=== PATIENT | female | born 1970 | race Caucasian/White ===

== ENCOUNTER 2018-11-16 08:37 | Emergency (ER) | payer OTHER ==
[~2018-11-16] VITALS: Ht 175.3 cm; Wt 85.9 kg
[2018-11-16 08:39] VITALS: BP 131/86; PULSE 74; RESP 17; Ht 175.3 cm; Wt 85.9 kg
[2018-11-16] MEDS ORDERED: NAPR-985 PO (10:17)
--- NOTE | 2018-11-16 10:26 | ERD ---
ER Documentation Chief Complaint Chief Complaint pelvic pain since 11/03 HPI 48-year-old female presenting with pelvic pain times 1 month. Patient states her pain is located in the right lower quadrant. LNMP October 04. Patient was seen at [facility] and told that she had a cyst on her ovary. Patient has had no changes in urination or bowel movement. Denies vomiting. No medical problems. Allergy to penicillin. Surgical history tonsillectomy and appendectomy. Social history denies ROS All systems reviewed and are negative except as per history of present illness. Medications Home Meds Active Scripts Naproxen* (Naprosyn*) 500 Mg Tablet, 500 MG PO BID PRN for PAIN AND/OR INFLAMMATION, #30 TAB Prov:BERNA STORM PA-C 11/16/18 Allergies Allergies: Coded Allergies: Penicillins (Verified Allergy, Unknown, 11/16/18) PMhx/Soc Hx Alcohol Use: No Hx Substance Use: No Hx Tobacco Use: No Smoking Status: Never smoker FmHx Family History: No diabetes, No coronary disease, No other Physical Exam Vitals Vital Signs Date Temp Pulse Resp B/P (MAP) Pulse Ox O2 O2 Flow FiO2 Time Delivery Rate 11/16/18 98.6 74 17 131/86 100 08:39 (101) Physical Exam GENERAL: The patient is well-appearing, well-nourished, in no acute distress CHEST: Clear to auscultation bilaterally. There are no rales, wheezes or rhonchi. HEART: Regular rate and rhythm. No murmurs, clicks, rubs or gallops. No S3 or S4. ABDOMEN: Normal active bowel sounds. No distention. Tender to palpation in the right lower quadrant with no rebound tenderness. No organomegaly. BACK: No midline or flank tenderness. Result Diagram: 11/16/1818 11/16/18917 Results 24 hrs Laboratory Tests Test 11/16/18 09:11 11/16/18 09:14 11/16/18 09:18 Urine Color YELLOW Urine Clarity CLEAR Urine pH 5.0 Urine Specific [place] 1.013 Urine Ketones NEGATIVE mg/dL Urine Nitrite NEGATIVE mg/dL Urine Bilirubin NEGATIVE mg/dL Urine Urobilinogen NEGATIVE mg/dL Urine Leukocyte Esterase NEGATIVE [place]/ul Urine Microscopic RBC 0 /HPF Urine Microscopic WBC 1 /HPF Urine Squamous Epithelial Cells FEW /HPF Urine Hemoglobin 2+ mg/dL Urine Glucose NEGATIVE mg/dL Urine Total Protein NEGATIVE mg/dl POC Beta HCG, Qualitative NEGATIVE White Blood Count 6.7 10^3/ul Red Blood Count 5.52 10^6/ul Hemoglobin 13.5 g/dl Hematocrit 43.5 % Mean Corpuscular Volume 78.8 fl Mean Corpuscular Hemoglobin 24.5 pg Mean Corpuscular 31.0 g/dl Hemoglobin Concent Red Cell Distribution Width 14.3 % Platelet Count 206 10^3/UL Mean Platelet Volume 12.7 fl Immature Granulocytes % 0.300 % Neutrophils % 67.0 % Lymphocytes % 24.3 % Monocytes % 6.4 % Eosinophils % 1.3 % Basophils % 0.7 % Nucleated Red Blood Cells % 0.0 /100WBC Immature Granulocytes # 0.020 10^3/ul Neutrophils # 4.5 10^3/ul Lymphocytes # 1.6 10^3/ul Monocytes # 0.4 10^3/ul Eosinophils # 0.1 10^3/ul Basophils # 0.1 10^3/ul Nucleated Red Blood Cells # 0.0 10^3/ul Sodium Level 141 mmol/L Potassium Level 3.9 mmol/L Chloride Level 100 mmol/L Carbon Dioxide Level 30 mmol/L Anion Gap 11 Blood Urea Nitrogen 18 mg/dl Creatinine 0.94 mg/dl Est Glomerular Filtrat > 60 mL/min Rate mL/min Glucose Level 101 mg/dl Calcium Level 9.8 mg/dl Total Bilirubin 0.5 mg/dl Direct Bilirubin 0.00 mg/dl Indirect Bilirubin 0.5 mg/dl Aspartate Amino Transf (AST/SGOT) 20 IU/L Alanine 24 IU/L Aminotransferase (ALT/SGPT) Alkaline Phosphatase 53 IU/L Total Protein 8.6 g/dl Albumin 4.9 g/dl Globulin 3.70 g/dl Albumin/Globulin Ratio 1.32 Lipase 85 U/L Procedures/MDM DIAGNOSTIC IMAGING REPORT Patient: VINITA DAMON : 1970 Age: 48 Sex: F MR #: [id number] DOS: 11/16/18 0906 Ordering MD: BERNA STORM PA-C Location: [facility] Room/Bed: PROCEDURE: US Pelvis. CLINICAL INDICATION: Pelvic pain. TECHNIQUE: Sonographic evaluation of the pelvis was performed utilizing both transabdominal and transvaginal technique.Curved array transabdominal transducer technique as well as a high frequency endovaginal probe was utilized. Images were reviewed on the high-resolution PACS workstation. Study was suboptimal due to overlying bowel gas obscuring much of the pelvis. COMPARISON: No prior studies are available for comparison. FINDINGS: The uterus is mildly prominent heterogeneous and measures 10.4 x 5.5 x 6.0 cm. There are are myometrial masses or fibroids measuring up to 2.2 cm near the fundus. The endometrium is normal measuring 8.0 mm. The right ovary measures 12.2 ml in volume. The left ovary measures 12.6 ml in volume. The ovaries are symmetric in size, echogenicity, flow, and morphology. There is a 2.3 cm right ovarian cyst with internal echoes.. There are no adnexal masses. There is trace pelvic free fluid.. IMPRESSION: Heterogeneous fibroid uterus. 2.3 cm right ovarian cyst with internal echoes. Trace pelvic free fluid. MDM: 48-year-old female presenting with pelvic pain. I have low suspicion for ovarian torsion. Patient does have a ovarian cyst noted on the right ovary which is likely the cause of pain. Patient is able to jump up and down without peritoneal signs I have low suspicion for appendicitis or other acute abdominal emergency. Patient has had appendicitis in the past. I have low suspicion for bowel obstruction as patient's bowels are normal active sound. Patient is discharged stricter precautions and pain medications. Patient is recommended to follow-up with [facility]. All questions answered at discharge Departure Diagnosis: Primary Impression: Ovarian cyst Condition: Stable Patient Instructions: Ovarian Cyst Referrals: [facility] [place] [id number] [facility] [address] [place] [phone]ABUSLEME MARILUZ [address] [place], [place] [phone] DR. ALEJANDROFORMERLY [facility] [phone] [place] [phone]ENG [facility] [address] [facility] [address] [address] [address] [place] [place] [phone] [facility] [place] [address] [place] [address] [facility] [id number] [address], [facility] [address] [address], [place] [address] [facility]. [address], [place] [address] [address] [address] [place], [place] [phone] Additional Instructions: FOLLOW UP WITH YOUR PRIMARY CARE PHYSICIAN TOMORROW.Return to this facility if you are not improving as expected. BERNA STORM PA-C Nov 16, 2018 10:26
== END 2018-11-16 10:38 | disposition home or self-care (01) ==
LOC: FTE 08:37
DX: N83.201 Unspecified ovarian cyst, right side (principal)
CPT/HCPCS: 36415; 76830; 76856; 80053; 81001; 81025; 83690; 85025; Z7502